=== PATIENT | male | born 1985 | race Caucasian/White ===

== ENCOUNTER 2018-08-03 12:34 | Inpatient (IN) | payer OTHER ==
[2018-08-03 14:41] VITALS: BMI 25.2
--- NOTE | 2018-08-03 18:19 | HP ---
CIWA Score - CIWA Score Nausea/Vomitin-No Nausea/No Vomiting Muscle Tremors: 2 Anxiety: 4-Mod. Anxious/Guarded Agitation: 3 Paroxysmal Sweats: 2 Orientation: 0-Oriented Tacttile Disturbances: 2-Mild Itch/Numbness/Burn Auditory Disturbances: 0-None Visual Disturbances: 0-None Headache: 0-None Present CIWA-Ar Total Score: 13 Admission ROS S - HPI Chief Complaint: alcohol and xanax withdrawal symptoms Allergies/Adverse Reactions: Allergies Allergy/AdvReac Type Severity Reaction Status Date / Time No Known Allergies Allergy Verified 08/03/18 16:51 History of Present Illness: 33 yo male with hx of alcohol crystal meth and xanax dependence is here seeking detox, reports hx of frequent relapse. Reports was at [facility] yesterday for psychosis and was referred for detox [facility]. Patient also reports he was referred by his out patient program [facility] [employer], sent to [facility] for rehab three weeks ago and was administratively discharge after a week in treatment, for using drugs while in rehab. PMHX: HIV+ ( not on meds), anxiety, depression, denies suicidal / homicidal ideation. Reports suicide attempts x 2, with last episode at 21 yo. Longest period of sobriety four year. Denies any legal troubles at this time. Denies hx of seizures or blackouts Exam Limitations: No Limitations - Ebola screening Have you traveled outside of the country in the last 21 days: No Have you had contact with anyone from an Ebola affected area: No Have you been sick,other than usual withdrawal symptoms: No Do you have a fever: No - Review of Systems Constitutional: Chills, Changes in sleep, Unintentional Wgt. Loss (10 lbs in the past month) EENT: reports: No Symptoms Reported Respiratory: reports: No Symptoms reported Cardiac: reports: No Symptoms Reported GI: reports: Poor Fluid Intake : reports: No Symptoms Reported Musculoskeletal: reports: Back Pain Integumentary: reports: No Symptoms Reported Neuro: reports: See HPI, Numbness (both hands), Dizziness Endocrine: reports: Increased Thirst Hematology: reports: See HPI Psychiatric: reports: Orientated x3, Anxious Other Systems: Reviewed and Negative Patient History - Patient Medical History Hx Anemia: No Hx Asthma: No Hx Chronic Obstructive Pulmonary Disease (COPD): No Hx Cancer: No Hx Cardiac Disorders: No Hx Congestive Heart Failure: No Hx Hypertension: No Hx Hypercholesterolemia: No Hx Pacemaker: No HX Cerebrovascular Accident: No Hx Seizures: No Hx Dementia: No Hx Diabetes: No Hx Gastrointestinal Disorders: No Hx Liver Disease: No Hx Genitourinary Disorders: No Hx Sexually Transmitted Disorders: Yes (syphillis ) Hx Renal Disease (ESRD): No Hx Thyroid Disease: No Hx Human Immunodeficiency Virus (HIV): Yes (dx 2005, currently not on meds) Hx Hepatitis C: No Hx Depression: Yes Hx Suicide Attempt: Yes Hx Bipolar Disorder: No Hx Schizophrenia: No - Patient Surgical History Past Surgical History: No Hx Neurologic Surgery: No Hx Cataract Extraction: No Hx Cardiac Surgery: No Hx Lung Surgery: No Hx Breast Surgery: No Hx Breast Biopsy: No Hx Abdominal Surgery: No Hx Appendectomy: No Hx Cholecystectomy: No Hx Genitourinary Surgery: No Hx Section: No Hx Orthopedic Surgery: No Anesthesia Reaction: No - PPD History Previous Implant?: Yes Documented Results: Negative w/o proof PPD to be Administered?: Yes - Smoking Cessation Smoking history: Current some day smoker Have you smoked in the past 12 months: Yes Aproximately how many cigarettes per day: 1 Hx Chewing Tobacco Use: No Initiated information on smoking cessation: Yes 'Breaking Loose' booklet given: 08/03/18 - Substance & Tx. History Hx Alcohol Use: Yes Hx Substance Use: Yes (AMP ) Substance Use Type: Alcohol, Tranquilizers Hx Substance Use Treatment: Yes (see HPI ) - Substances Abused Alcohol Route: Oral Frequency: Daily Amount used: LIQUOR- 2 PINTS Age of first use: 18 Date of Last Use: 08/01/18 Alprazolam (Xanax) Route: Oral Frequency: 3-6 times per week Amount used: 2mg Age of first use: 20 Date of Last Use: 08/01/18 Crystal meth Route: Smoking Frequency: Daily Amount used: 1gm Age of first use: 20 Date of Last Use: 08/01/18 Family Disease History - Family Disease History Family History: Denies Admission Physical Exam BHS - Vital Signs Vital Signs: Vital Signs - 24 hr 08/03/18 14:31 Temperature 97 F L Pulse Rate 101 H Respiratory 20 Rate Blood Pressure 113/74 - Physical General Appearance: Yes: Disheveled, Mild Distress, Thin, Sweating, Anxious, Other (restless) HEENTM: Yes: EOMI, Hearing grossly Normal, Normal ENT Inspection, Normocephalic , Normal Voice, ANAHI, Pharynx Normal, Tm's normal, Other (cheilithis) Respiratory: Yes: Chest Non-Tender, Lungs Clear, Normal Breath Sounds, No Respiratory Distress, No Accessory Muscle Use Neck: Yes: Within Normal Limits Breast: Yes: Breast Exam Deferred Cardiology: Yes: Regular Rhythm, Tachycardia Abdominal: Yes: Within Normal Limits Genitourinary: Yes: Within Normal Limits Back: Yes: Normal Inspection Musculoskeletal: Yes: full range of Motion, Gait Steady, Pelvis Stable, Back pain Extremities: Yes: Normal Capillary Refill, Normal Inspection, Normal Range of Motion, Non-Tender Neurological: Yes: public welfare director II-XII NML intact, Fully Oriented, Alert, Motor Strength 5/5, Depressed Affect Integumentary: Yes: Normal Color, Cl[place] Lymphatic: Yes: Within Normal Limits - Diagnostic (1) Amphetamine dependence Current Visit: Yes Status: Acute (2) Alcohol dependence with withdrawal Current Visit: Yes Status: Acute Qualifiers: Complication of substance-induced condition: uncomplicated Qualified Code(s ): F10.230 - Alcohol dependence with withdrawal, uncomplicated (3) Sedative, hypnotic or anxiolytic dependence with withdrawal, uncomplicated Current Visit: Yes Status: Acute (4) HIV (human immunodeficiency virus infection) Current Visit: Yes Status: Chronic Comment: no meds Cleared for Admission [facility] - Detox or Rehab [facility] Level of Care: Medically Managed Detox Regimen/Protocol: Valium [facility] Breath Alcohol Content Breath Alcohol Content: 0 Urine Drug Screen - Results Drug Screen Negative: No Urine Drug Screen Results: AMP-Amphetamines, MET-Methamphetamine, BZO- Benzodiazepines
[2018-08-03] MEDS ORDERED: MAG HYDROX/AL HYDROX/SIMETH 30 ML UNIT-DOSE CUP PO PRN (18:33)
[2018-08-03] MEDS ORDERED: P-EPHED 60MG/TRIPROLIDI 2.5MG TABLET PO PRN (18:33)
[2018-08-03] MEDS ORDERED: MENTHOL/PHENOL 1 EACH UD MM PRN (18:33)
[2018-08-03] MEDS ORDERED: diazePAM 5 MG TABLET PO PRN (18:33)
[2018-08-03] MEDS ORDERED: IBUPROFEN 400 MG TABLET (FP) PO PRN (18:33)
[2018-08-03] MEDS ORDERED: guaiFENesin/D-METHORPHAN HB 10 ML UNIT-DOSE CUPS PO PRN (18:33)
[2018-08-03] MEDS ORDERED: LOPERAMIDE HCL 2 MG CAPSULE PO PRN (18:33)
[2018-08-03] MEDS ORDERED: hydrOXYzine PAMOATE 50 MG CAPSULE (FP) PO PRN (18:33)
[2018-08-03] MEDS ORDERED: MAGNESIUM CITRATE 300 ML BOTTLE PO PRN (18:33)
[2018-08-03] MEDS ORDERED: ACETAMINOPHEN 325 MG TABLET (FP) PO PRN (18:33)
[2018-08-03] MEDS ORDERED: MAGNESIUM HYDROX 2400MG/30ML ORAL SUSPENSION 30 ML CUP PO PRN (18:33)
[2018-08-03] MEDS ORDERED: diazePAM 5 MG TABLET PO ONE (19:00)
[2018-08-03] MEDS: diazePAM 5 MG TABLET PO SCH (22:21)
[2018-08-03] MEDS: THIAMINE HCL 100 MG TABLET (FP) PO SCH (22:21)
[2018-08-03] MEDS: MELATONIN 5 MG TABLETS PO PRN (22:21)
[2018-08-03 23:13] LABS: URINE APPEARANCE CLEAR; URINE BILIRUBIN NEGATIVE (<2.0 mg/dL); URINE COLOR YELLOW; URINE GLUCOSE (UA) NEGATIVE (NEGATIVE); URINE KETONE NEGATIVE (NEGATIVE); URINE LEUK ESTERASE NEGATIVE (NEGATIVE); URINE NITRITE NEGATIVE (NEGATIVE); URINE PROTEIN NEGATIVE (NEGATIVE); URINE UROBILINOGEN 4.0 E.U/dl mg/dL (0.2-1.0)
[2018-08-04] MEDS: diazePAM 5 MG TABLET PO SCH ×3 (06:43→22:08)
[2018-08-04 10:14] LABS: HEMATOCRIT 41.1 % (35.4-49); HEMOGLOBIN 13.3 GM/dL (11.7-16.9); MCH 27.7 pg (25.7-33.7); MCHC 32.3 g/dl (32.0-35.9); MEAN CELL VOLUME 85.8 fl (80-96); MEAN PLT VOLUME 7.6 fl (7.5-11.1); PLATELET COUNT 203 K/MM3 (134-434); WHITE BLOOD COUNT 3.6 K/mm3 (4.0-10.0)
[2018-08-04] MEDS: PRENATAL VITAMINS W/ FOLIC ACID TABLET (FP) PO SCH (10:23)
--- NOTE | 2018-08-04 10:24 | PN ---
S CIWA - CIWA Score Nausea/Vomitin-No Nausea/No Vomiting Muscle Tremors: 3 Anxiety: 3 Agitation: 2 Paroxysmal Sweats: No Perspiration Orientation: 0-Oriented Tacttile Disturbances: 0-None Auditory Disturbances: 0-None Visual Disturbances: 0-None Headache: 3-Moderate CIWA-Ar Total Score: 11 BHS Progress Note (SOAP) Subjective: PATIENT C/O HEADACHE, ANXIETY, TREMORS AND IRRITABILITY. Objective: 08/04/18 10:23 Vital Signs Temperature 97.7 F 08/04/18 09:32 Pulse Rate 78 08/04/18 09:32 Respiratory Rate 18 08/04/18 09:32 Blood Pressure 127/62 08/04/18 09:32 O2 Sat by Pulse Oximetry (%) Laboratory Tests 08/03/18 08/04/18 22:00 06:30 WBC 3.6 L RBC 4.80 Hgb 13.3 Hct 41.1 MCV 85.8 MCH 27.7 MCHC 32.3 RDW 15.0 Plt Count 203 MPV 7.6 Urine Color Yellow Urine Appearance Clear Urine pH 7.0 Ur Specific [place] 1.025 Urine Protein Negative Urine Glucose (UA) Negative Urine Ketones Negative Urine Blood Negative Urine Nitrite Negative Urine Bilirubin Negative Urine Urobilinogen 4.0 e.u/dl Ur Leukocyte Esterase Negative SKIN WARM AND FLUSHED ALERT AND ORIENTED X 3 CAR S1S2 RESP CTA BL EXT +TREMORS, FULL ROM, NO EDEMA Assessment: 08/04/18 10:24 WITHDRAWAL SX Plan: CONTINUE DETOX ENCOURAGE ORAL FLUIDS CONTINUE TO MONITOR CLINICALLY
[2018-08-04 10:35] LABS: ALBUMIN 3.2 g/dl (3.4-5.0); ALK PHOS 49 U/L (45-117); ANION GAP 7 MMOL/L (8-16); BILIRUBIN,TOTAL 0.4 mg/dL (0.2-1); BLOOD UREA NITROGEN 14 mg/dL (7-18); CALCIUM 7.9 mg/dL (8.5-10.1); CHLORIDE 108 mmol/L (98-107); CO2 28 mmol/L (21-32); CREATININE 0.7 mg/dL (0.55-1.3); GLUCOSE,RANDOM 80 mg/dL (74-106); POTASSIUM 4.3 mmol/L (3.5-5.1); SGOT/AST 20 U/L (15-37); SGPT/ALT 30 U/L (13-61); SODIUM 142 mmol/L (136-145)
--- NOTE | 2018-08-04 16:07 | EKG ---
Test Reason : Blood Pressure : / mmHG Vent. Rate : 074 BPM Atrial Rate : 074 BPM P-R Int : 150 ms QRS Dur : 074 ms QT Int : 372 ms P-R-T Axes : 052 064 058 degrees QTc Int : 412 ms NORMAL SINUS RHYTHM NORMAL ECG NO PREVIOUS ECGS AVAILABLE Confirmed by MD LUIS ALBERTO, PREM ([id number]) on 08/04/2018 4:07:08 PM Referred By: Confirmed By:PREM SAHU MD
--- NOTE | 2018-08-04 18:03 | CONSULT ---
[facility] Psychiatric Consult - Data Date of interview: 08/04/18 Admission source: [facility]. Referred by [facility] program. Identifying data: First admission to [facility] for this 33 y/o male seeking detoxification treatment, on , for alcohol, crystal methamphetamine and benzodiazepine (xanax) dependence. Patient is single without dependents, homeless (senior care), unemployed and supported via [employer] benefits. Substance Abuse History: Confirmed by the patient in this interview. Details in current [facility] report as follows : Smoking history: Current some day smoker. Have you smoked in the past 12 months: Yes. Aproximately how many cigarettes per day : 1. Hx Chewing Tobacco Use: No. Initiated information on smoking cessation: Yes. 'Breaking Loose' booklet given: 08/03/18. - Substance & Tx. History. Hx Alcohol Use: Yes. Hx Substance Use: Yes (AMP ). Substance Use Type: Alcohol, Tranquilizers. Hx Substance Use Treatment: Yes (see HPI ). - Substances Abused. Alcohol. Route: Oral. Frequency: Daily. Amount used: LIQUOR- 2 PINTS. Age of first use: 18. Date of Last Use: 08/01/18. Alprazolam (Xanax ). Route: Oral. Frequency: 3-6 times per week. Amount used: 2mg. Age of first use: 20. Date of Last Use: 08/01/18. Crystal meth. Route: Smoking. Frequency: Daily. Amount used: 1gm. Age of first use: 20. Date of Last Use: 08/01/18 Medical History: HIV infection since 2004 (not on HAART medications) and a history of treatment for syphilis. Psychiatric History: Patient admits to a history of two psychiatric hospitalizations ([facility]). Diagnosed with Anxiety Disorder. Mr Newberry sees a psychiatrist at the [facility] in [facility]. Medicated with mirtazapine 7.5 mg/hs. NOT taken for two weeks as per self-report. Patient endorses a history of two suicide attempts via overdose with pills (age 21). Physical/Sexual Abuse/Trauma History: Patient denies. Additional Comment: Urine Drug Screen Results: AMP-Amphetamines, MET- Methamphetamine, BZO-Benzodiazepines. Noted. Mental Status Exam - Mental Status Exam Alert and Oriented to: Time, Place, Person Cognitive Function: Good Patient Appearance: Unkempt, Disheveled Mood: Nervous, Withdrawn, Irritable Affect: Mood Congruent, Constricted Patient Behavior: Fatigued, Cooperative Speech Pattern: Clear Voice Loudness: Normal Thought Process: Intact, Goal Oriented Thought Disorder: Not Present Hallucinations: Denies Suicidal Ideation: Denies Homicidal Ideation: Denies Insight/Judgement: Poor Sleep: Poorly, Difficulty falling asleep Appetite: Good Muscle strength/Tone: Normal Gait/Station: Other (not observed ; in bed for entire interview) Psychiatric Findings - Problem List ([place] 1, 2,3) (1) Alcohol dependence with withdrawal Current Visit: Yes Status: Acute Qualifiers: Complication of substance-induced condition: uncomplicated Qualified Code(s ): F10.230 - Alcohol dependence with withdrawal, uncomplicated (2) Sedative, hypnotic or anxiolytic dependence with withdrawal, uncomplicated Current Visit: Yes Status: Acute (3) Amphetamine dependence Current Visit: Yes Status: Acute (4) Substance induced mood disorder Current Visit: Yes Status: Acute - Initial Treatment Plan Initial Treatment Plan: Psychoeducation. Sleep hygiene. Detoxification in progress. Psychotherapy (group, individual, cognitive/behavioral and supportive) . AA meetings recommended. Relapse prevention : discussed with the patient. Made aware of benefits of coverage with naltrexone in aftercare. Reminded of option of rehabilitation upon completion of this treatment. Patient remains ambivalent about his intentions about post-detoxification care. Will resume mirtazapine 7.5 mg po hs. Side effects/benefits revisited with the patient. Mr Newberry has expressed his agreement with this careplan. Observation.
[2018-08-04] MEDS: THIAMINE HCL 100 MG TABLET (FP) PO SCH (22:08)
[2018-08-04] MEDS: MIRTAZAPINE 15 MG TABLET (FP) PO SCH (22:08)
[2018-08-04] MEDS: MELATONIN 5 MG TABLETS PO PRN (22:09)
[2018-08-05] MEDS: PRENATAL VITAMINS W/ FOLIC ACID TABLET (FP) PO SCH (10:18)
[2018-08-05] MEDS: diazePAM 5 MG TABLET PO SCH ×2 (10:18→22:18)
--- NOTE | 2018-08-05 12:50 | PN ---
S CIWA - CIWA Score Nausea/Vomitin-Mild Nausea/No Vomiting Muscle Tremors: 4-Moderate,w/Arms Extend Anxiety: 4-Mod. Anxious/Guarded Agitation: 2 Paroxysmal Sweats: No Perspiration Orientation: 0-Oriented Tacttile Disturbances: 0-None Auditory Disturbances: 0-None Visual Disturbances: 0-None Headache: 1-Very Mild CIWA-Ar Total Score: 12 BHS Progress Note (SOAP) Subjective: Stomach ache, interrupted sleep Objective: 08/05/18 12:40 Last Vital Signs Temp Pulse Resp BP Pulse Ox 97.9 F 99 H 20 137/81 08/05/18 09:09 08/05/18 09:09 08/05/18 09:09 08/05/18 09:09 Laboratory Tests 08/03/18 08/04/18 08/04/18 22:00 06:30 06:30 WBC 3.6 L RBC 4.80 Hgb 13.3 Hct 41.1 MCV 85.8 MCH 27.7 MCHC 32.3 RDW 15.0 Plt Count 203 MPV 7.6 Sodium 142 Potassium 4.3 Chloride 108 H Carbon Dioxide 28 Anion Gap 7 L BUN 14 Creatinine 0.7 Creat Clearance w eGFR > 60 Random Glucose 80 Calcium 7.9 L Total Bilirubin 0.4 AST 20 ALT 30 Alkaline Phosphatase 49 Total Protein 6.0 L Albumin 3.2 L Urine Color Yellow Urine Appearance Clear Urine pH 7.0 Ur Specific [place] 1.025 Urine Protein Negative Urine Glucose (UA) Negative Urine Ketones Negative Urine Blood Negative Urine Nitrite Negative Urine Bilirubin Negative Urine Urobilinogen 4.0 e.u/dl Ur Leukocyte Esterase Negative RPR Titer 08/04/18 06:30 WBC RBC Hgb Hct MCV MCH MCHC RDW Plt Count MPV Sodium Potassium Chloride Carbon Dioxide Anion Gap BUN Creatinine Creat Clearance w eGFR Random Glucose Calcium Total Bilirubin AST ALT Alkaline Phosphatase Total Protein Albumin Urine Color Urine Appearance Urine pH Ur Specific [place] Urine Protein Urine Glucose (UA) Urine Ketones Urine Blood Urine Nitrite Urine Bilirubin Urine Urobilinogen Ur Leukocyte Esterase RPR Titer Nonreactive Labs reviewed Assessment: 08/05/18 12:50 Withdrawal symptoms Plan: Continue detox Encouraged PO water intake
[2018-08-05] MEDS: MELATONIN 5 MG TABLETS PO PRN (22:18)
[2018-08-05] MEDS: THIAMINE HCL 100 MG TABLET (FP) PO SCH (22:18)
[2018-08-05] MEDS: MIRTAZAPINE 15 MG TABLET (FP) PO SCH (22:19)
--- NOTE | 2018-08-06 09:55 | PN ---
BHS Progress Note (SOAP) Subjective: PATIENT CONTINUES WITH DETOX REGIMEN. IRRITABLE AND DID NOT WANT TO INTERACT WITH PROVIDER. Objective: 08/06/18 09:54 Vital Signs Temperature 98.7 F 08/06/18 09:10 Pulse Rate 85 08/06/18 09:10 Respiratory Rate 18 08/06/18 09:10 Blood Pressure 116/67 08/06/18 09:10 O2 Sat by Pulse Oximetry (%) Laboratory Tests 08/03/18 08/04/18 08/04/18 22:00 06:30 06:30 WBC 3.6 L RBC 4.80 Hgb 13.3 Hct 41.1 MCV 85.8 MCH 27.7 MCHC 32.3 RDW 15.0 Plt Count 203 MPV 7.6 Sodium 142 Potassium 4.3 Chloride 108 H Carbon Dioxide 28 Anion Gap 7 L BUN 14 Creatinine 0.7 Creat Clearance w eGFR > 60 Random Glucose 80 Calcium 7.9 L Total Bilirubin 0.4 AST 20 ALT 30 Alkaline Phosphatase 49 Total Protein 6.0 L Albumin 3.2 L Urine Color Yellow Urine Appearance Clear Urine pH 7.0 Ur Specific [place] 1.025 Urine Protein Negative Urine Glucose (UA) Negative Urine Ketones Negative Urine Blood Negative Urine Nitrite Negative Urine Bilirubin Negative Urine Urobilinogen 4.0 e.u/dl Ur Leukocyte Esterase Negative RPR Titer 08/04/18 06:30 WBC RBC Hgb Hct MCV MCH MCHC RDW Plt Count MPV Sodium Potassium Chloride Carbon Dioxide Anion Gap BUN Creatinine Creat Clearance w eGFR Random Glucose Calcium Total Bilirubin AST ALT Alkaline Phosphatase Total Protein Albumin Urine Color Urine Appearance Urine pH Ur Specific [place] Urine Protein Urine Glucose (UA) Urine Ketones Urine Blood Urine Nitrite Urine Bilirubin Urine Urobilinogen Ur Leukocyte Esterase RPR Titer Nonreactive ALERT AND ORIENTED X 3 AMB AD NICKY IRRITABLE AND NOT WILLING TO FULLY INTERACT WITH PROVIDER Assessment: 08/06/18 09:55 WITHDRAWAL SX Plan: CONTINUE DETOX REGIMEN ENCOURAGE ORAL FLUIDS CONTINUE TO MONITOR CLINICALLY
[2018-08-06] MEDS: diazePAM 5 MG TABLET PO SCH ×2 (10:24→22:27)
[2018-08-06] MEDS: PRENATAL VITAMINS W/ FOLIC ACID TABLET (FP) PO SCH (10:24)
[2018-08-06] MEDS: MIRTAZAPINE 15 MG TABLET (FP) PO SCH (22:27)
[2018-08-06] MEDS: THIAMINE HCL 100 MG TABLET (FP) PO SCH (22:27)
[2018-08-06] MEDS: MELATONIN 5 MG TABLETS PO PRN (22:28)
[2018-08-07 06:13] VITALS: BP 115/71; PULSE 80; TEMP 98.2
[2018-08-07] MEDS: PRENATAL VITAMINS W/ FOLIC ACID TABLET (FP) PO SCH (09:50)
[2018-08-07] MEDS ORDERED: diazePAM 5 MG TABLET PO SCH (10:00)
--- NOTE | 2018-08-07 10:09 | DS ---
[facility] Detox Discharge Summary Admission Date: 08/03/18 Discharge Date: 08/07/18 - History Present History: Alcohol Dependence, Sedative Dependence - Physical Exam Results Vital Signs: Vital Signs Temperature 98.2 F 08/07/18 06:12 Pulse Rate 80 08/07/18 06:12 Respiratory Rate 16 08/07/18 06:12 Blood Pressure 115/71 08/07/18 06:12 O2 Sat by Pulse Oximetry (%) Pertinent Admission Physical Exam Findings: PATIENT COMPLETED DETOX WITHOUT ADVERSE EVENT. PATIENT MEDICALLY STABLE. DENIES SI/HI. PATIENT ALERT AND ORIENTED X 3. AMB AD NICKY. IN NO ACUTE DISTRESS. EXT WITH FULL ROM, NO EDEMA. CALM BUT IRRITABLE DURING EVALUATION. PATIENT ENCOURAGED TO ATTEND AA AND GROUP MEETINGS TO PREVENT RELAPSE. PATIENT ALSO ADVISED TO FOLLOW UP WITH PCP WITHIN ONE WEEK OF DISCHARGE AND TO SEEK MEDICAL ATTENTION IF WITHDRAWAL SYMPTOMS OCCUR. DISCHARGE INSTRUCTIONS PROVIDED TO PATIENT BY STAFF. - Treatment Hospital Course: Detox Protocol Followed, Detoxed Safely, Responded well, Discharged Condition Good - Medication Discharge Medications: Ambulatory Orders Bictegrav/Emtricit/Tenofov Ala [Biktarvy 50-200-25 mg Tablet] 1 each PO DAILY - Diagnosis (1) Alcohol dependence with withdrawal Current Visit: Yes Status: Acute Qualifiers: Complication of substance-induced condition: uncomplicated Qualified Code(s ): F10.230 - Alcohol dependence with withdrawal, uncomplicated (2) Sedative, hypnotic or anxiolytic dependence with withdrawal, uncomplicated Current Visit: Yes Status: Resolved - AMA Did Patient Leave Against Medical Advice: No
== END 2018-08-07 09:56 | disposition home or self-care (01) | DRG 775 ==
LOC: YASAS 12:34 → Y3N 17:28
PROC: HZ2ZZZZ Detoxification Services for Substance Abuse Treatment (ICD-10-PCS; principal; 2018-08-03)
DX: F10.230 Alcohol dependence with withdrawal, uncomplicated (principal); F13.230 Sedative, hypnotic or anxiolytic dependence with withdrawal, uncomplicated; F15.20 Other stimulant dependence, uncomplicated; F17.210 Nicotine dependence, cigarettes, uncomplicated; F19.24 Other psychoactive substance dependence with psychoactive substance-induced mood disorder; F32.9 Major depressive disorder, single episode, unspecified; Z21 Asymptomatic human immunodeficiency virus [HIV] infection status; Z86.19 Personal history of other infectious and parasitic diseases; Z91.5 Personal history of self-harm
CPT/HCPCS: 36415; 80053; 81003; 85027; 86593; 93005; 93010